=== PATIENT | male | born 1950 | race Caucasian/White ===

== ENCOUNTER 2022-05-19 08:00 | Outpatient (NON) | payer MEDICARE, SELFPAY | END 2022-05-19 08:01 | disposition home or self-care (01) | LOC: ANHLAB 05-22 11:08 | PROVIDERS: Visit Provider Nurse Practitioner | DX: C44.629 Squamous cell carcinoma of skin of left upper limb, including shoulder (principal) | CPT/HCPCS: 88305 ==

== ENCOUNTER 2022-06-02 10:09 | Outpatient (NON) | payer MEDICARE, SELFPAY | END 2022-06-02 10:10 | disposition home or self-care (01) | LOC: ANHLAB 06-03 10:11 | PROVIDERS: Visit Provider Nurse Practitioner | DX: C43.9 Malignant melanoma of skin, unspecified (principal) | CPT/HCPCS: 88305 ==

== ENCOUNTER 2022-12-01 07:00 | Outpatient (NON) | payer MEDICARE, SELFPAY | END 2022-12-01 07:01 | disposition home or self-care (01) | LOC: ANHLAB 12-02 12:23 | PROVIDERS: Visit Provider Nurse Practitioner | DX: L72.0 Epidermal cyst (principal) | CPT/HCPCS: 88305 ==

== ENCOUNTER 2023-03-04 14:40 | Outpatient (NON) | payer MEDICARE, SELFPAY | END 2023-03-04 14:41 | disposition home or self-care (01) | LOC: ANHLAB 14:43 | PROVIDERS: Visit Provider Nurse Practitioner | DX: L43.8 Other lichen planus (principal) | CPT/HCPCS: 88305; 88313; 88342 ==